=== PATIENT | male | born 1965 | race Caucasian/White ===

== ENCOUNTER → 2016-07-14 | Outpatient (CLI) | payer OTHER ==
[~2016-07-14] MED LIST: CEFTIN500 MG PO; CLEOCIN HCL300 MG PO; MOBIC7.5 MG PO; PROTONIX 40 MG40 M1 PO; ROXICODONE30 MG PO; VENTOLIN HFA8 GM INH
== END ==
LOC: HEART 5 11:29
DX: R07.89 Other chest pain (principal); J44.9 Chronic obstructive pulmonary disease, unspecified
CPT/HCPCS: 71020-FX; 94060

== ENCOUNTER → 2016-08-10 | Outpatient (CLI) | payer OTHER | LOC: SLEEP-COR 21:30 | DX: G47.33 Obstructive sleep apnea (adult) (pediatric) (principal) | CPT/HCPCS: 95810 ==

== ENCOUNTER → 2020-03-29 | Outpatient (CLI) | payer OTHER | LOC: HEART 5 11:32 | DX: J44.9 Chronic obstructive pulmonary disease, unspecified (principal); R94.2 Abnormal results of pulmonary function studies; F17.210 Nicotine dependence, cigarettes, uncomplicated | CPT/HCPCS: 94010; 94729 ==